=== PATIENT | female | born 1990 | race Caucasian/White ===

== ENCOUNTER 2021-02-07 10:46 | Emergency (ER) | payer OTHER ==
[~2021-02-07] VITALS: Ht 167.6 cm; Wt 74.8 kg
[~2021-02-07 10:46] MED LIST: CIPROFLOXACIN500 MG PO; PYRIDIUM200 MG PO
[2021-02-07] MEDS ORDERED: EC NAPROSYN500 MG PO (12:42)
== END 2021-02-07 12:46 | disposition home or self-care (01) ==
LOC: ED 10:46
DX: S86.912A Strain of unspecified muscle(s) and tendon(s) at lower leg level, left leg, initial encounter (principal); X58.XXXA Exposure to other specified factors, initial encounter; Y93.89 Activity, other specified; Y92.89 Other specified places as the place of occurrence of the external cause; Y99.8 Other external cause status

== ENCOUNTER 2024-12-20 18:24 | Emergency (ER) | payer BC ==
[~2024-12-20] VITALS: Ht 165.1 cm; Wt 65.8 kg
[~2024-12-20 18:24] MED LIST changes: +EC NAPROSYN500 MG PO
[2024-12-20] MEDS ORDERED: Albuterol Sulf/Ipratropium 3 ML VIAL NEB ONE (18:40)
[2024-12-20] MEDS ORDERED: methylPREDNISolone sod succ 125 MG VIAL IM ONE (18:40)
[2024-12-20] MEDS ORDERED: MEDROL DOSEPAK4 MG PO (19:47)
[2024-12-20] MEDS ORDERED: AMOX-CLAV 875-1 EACH PO (19:47)
[2024-12-20] MEDS ORDERED: Amoxicillin/Clavulanate Pota 875 MG TAB PO ONE (19:50)
== END 2024-12-20 20:01 | disposition home or self-care (01) ==
LOC: ED 18:24
DX: J18.9 Pneumonia, unspecified organism (principal); Z20.822 Contact with and (suspected) exposure to COVID-19; R06.02 Shortness of breath